=== PATIENT | female | born 1930 | race Caucasian/White ===

== ENCOUNTER 2019-03-29 13:10 | Inpatient (IN) | payer MEDICARE ==
[~2019-03-29] VITALS: Ht 165.1 cm; Wt 65.6 kg
[2019-03-29] MEDS ORDERED: ATIVAN0.5 MG PO (13:21)
[2019-03-29] MEDS ORDERED: CALCIUM 600 +1 EAC3 PO (13:21)
[2019-03-29] MEDS ORDERED: CLARITIN 10 MG10 MG (13:22)
[2019-03-29] MEDS ORDERED: VITAMIN D5000 UNIT PO (13:22)
[2019-03-29] MEDS ORDERED: COLACE100 MG PO (13:22)
[2019-03-29] MEDS ORDERED: NEURONTIN 300300 MG PO (13:22)
[2019-03-29] MEDS ORDERED: LASIX40 MG PO (13:24)
[2019-03-29] MEDS ORDERED: MELATONIN5 MG PO (13:24)
[2019-03-29] MEDS ORDERED: MIRALAX17 GM PO (13:25)
[2019-03-29] MEDS ORDERED: MIDODRINE HCL2.5 MG PO (13:25)
[2019-03-29] MEDS ORDERED: NEPHRO-VITE RX1 TAB PO (13:25)
[2019-03-29] MEDS ORDERED: PRAVACHOL20 MG PO (13:26)
[2019-03-29] MEDS ORDERED: HYDROCODON-ACE1 EA10 PO (13:26)
[2019-03-29] MEDS ORDERED: PATADAY2.5 ML EACH EYE (13:26)
--- NOTE | 2019-03-29 13:35 | NUR ---
PATIENT IN GOWN; ON LAND RECLAMATION SPECIALIST; CALL LIGHT WITHIN REACH; BEDSIDE TABLE WITHIN REACH
[2019-03-29 14:00] VITALS: BP 153/59
--- NOTE | 2019-03-29 14:00 | NUR ---
PATIENT SLEEPING AROUSES TO VERBAL STIMULI; RESPIRATIONS EVEN AND UNLABORED; NO NEEDS NOTED; UPDATED ON PLAN OF CARE AND DELAYS IN CARE; WILL CONTINUE TO MONITOR.
[2019-03-29 14:59] LABS: ALBUMIN 2.9 g/dL (3.4-5.0); ANION GAP 14.8 mmol/L (8-16); BILIRUBIN - TOTAL 0.33 mg/dL (0.2-1.3); CARBON DIOXIDE 23.2 mmol/L (21.0-32.0); CREATININE - SERUM 3.8 mg/dL (0.6-1.3); PROTEIN - SERUM 6.2 g/dL (6.4-8.2)
[2019-03-29 15:00] VITALS: BP 166/59
--- NOTE | 2019-03-29 15:00 | NUR ---
PATIENT SLEEPING; AWAKES TO VERBAL STIMULI; NO NEEDS NOTED; UPDATED ON PLAN OF CARE AND DELAYS IN CARE; WILL CONTINUE TO MONITOR.
[2019-03-29 15:01] LABS: BASOPHILS 0.5 % (0-2); EOSINOPHILS 2.2 % (0-7); HEMATOCRIT 36.8 % (36.0-48.0); IMMATURE GRANULOCYTES 0.3 % (0-5); LYMPHOCYTES 38.7 % (15-50); MCH 29.9 pg (26.0-34.0); MCHC 32.6 g/dL (31.0-37.0); MCV 91.8 fL (80.0-100.0); MEAN PLATELET VOLUME 8.8 fL (7.4-10.4); MONOCYTES 9.6 % (2-11); NEUTROPHILS 48.7 % (40-80); PLATELET COUNT 235 10x3/uL (130-400); RBC 4.01 10x6/uL (4.00-5.40); RDW 17.1 % (11.5-14.5); WBC 7.4 10x3/uL (4.8-10.8)
--- NOTE | 2019-03-29 15:31 | NUR ---
PORTABLE X-RAY AT BEDSIDE
[2019-03-29 17:09] VITALS: BP 177/63
--- NOTE | 2019-03-29 17:51 | NUR ---
PATIENT GIVEN DIET TRAY
--- NOTE | 2019-03-29 17:59 | NUR ---
REPORT RECIEVED FROM ALLIE BUENO IN ER. ROOM DIRTY AT THIS TIME. WILL CALL WHEN COMPLETE.
--- NOTE | 2019-03-29 18:03 | NUR ---
CONTACTED MEGAN CAMPOVERDE AND UPDATED ON PATIENT STATUS; THEY ARE GOING TO CONTACT FAMILY MEMBER
--- NOTE | 2019-03-29 18:32 | NUR ---
PT RECIEVED FROM ER VIA LIA. ALERT AND ORIENTED. IV NOTED TO RIGHT FOREARM. RESERVE LEFT ARM. REDNESS AND SWELLING NOTED TO UPPER LEFT ARM. HEMASPLIT NOTED TO RIGHT GROIN. DRESSING, CDI. NONBLANCHABLE REDNESS NOTED TO BUTTOCK. RR EVEN AND UNLABORED. DENIES NEEDS OR PAIN AT THIS TIME. WILL CONTINUE TO MONITOR.
--- NOTE | 2019-03-29 18:52 | MORECARE ---
CASE MANAGEMENT DISCHARGE SUMMARY PATIENT: BETY CASEY UNIT: [id number] ADM DATE: 03/29/19 AGE: 88 : [birth year] SEX: F ROOM/BED: D.2110 AUTHOR: ERIK MEDLEY PHYSICIAN: REFERRING PHYSICIAN: SUNSHINE HERNANDEZ MD DATE OF SERVICE: 03/29/19 Discharge Plan Patient Name: BETY CASEY Facility: [facility]:[place] : 1930 Planned Disposition: Anticipated Discharge Date: Discharge Date: Expected LOS: Initial Reviewer: [email or web address] Initial Review Date: 03/29/2019 Generated: 03/29/19 7:52 pm Patient Name: BETY CASEY Page 60082 at 1852 All edits/amendments must be made on the electronic document DICTATION DATE: 03/29/191851 ADOBE FLEX DEVELOPER: J LUIS 03/29/191851 RPT#: [id number] DC DATE: STATUS: ADM IN [facility] [address] [place] [address] END OF REPORT
--- NOTE | 2019-03-29 19:35 | NUR ---
PT LYING IN BED RESTING WITH EYES CLOSED. AWAKENS TO VERBAL STIMULI. ALERT AND ORIENTED. DENIES PAIN. REQUESTED AND GIVEN SANDWICH AND WATER, PT ATE ALL OF TRAY. IV RIGHT HAND SL, FLUSHES EASILY. LEFT UPPER ARM FISTULA WITH REDDENED AREA, SWELLING, AND BLEEDING. DRESSING CHANGED. HEME SPLIT TO RIGHT GROIN. TELE PLACED ON PT, HR 55 SR. DENIES OTHER NEEDS AT THIS TIME. BED ALARM ON, CL IN REACH. WILL CTM
[2019-03-29 20:00] VITALS: BP 166/58
[2019-03-29 20:47] VITALS: BMI 24.0
[2019-03-30] VITALS: BP 138/47
--- NOTE | 2019-03-30 00:45 | NUR ---
PT WAKING UP EVERY 30MIN, ANXIOUS AND FORGETFUL OF TIME. REQUESTED "IBUPROFEN OR SOMETHING" TO HELP HER, INFORMED PT HAD NOT RESTARTED HOME MEDICATIONS YET BUT ASKED IF TYLENOL WOULD HELP HER, PT STATES YES. GAVE TYLENOL. WILL CTM
[2019-03-30 05:07] LABS: BASOPHILS 0.6 % (0-2); EOSINOPHILS 2.4 % (0-7); HEMATOCRIT 35.1 % (36.0-48.0); HEMOGLOBIN 11.3 g/dL (12-16); IMMATURE GRANULOCYTES 0.3 % (0-5); LYMPHOCYTES 27.1 % (15-50); MCHC 32.2 g/dL (31.0-37.0); MCV 93.1 fL (80.0-100.0); MONOCYTES 10.7 % (2-11); NEUTROPHILS 58.9 % (40-80); PLATELET COUNT 243 10x3/uL (130-400); RBC 3.77 10x6/uL (4.00-5.40); RDW 17.6 % (11.5-14.5)
[2019-03-30 05:33] LABS: ANION GAP 15.5 mmol/L (8-16); CALCIUM 8.3 mg/dL (8.5-10.1); CARBON DIOXIDE 21.7 mmol/L (21.0-32.0); CREATININE - SERUM 4.3 mg/dL (0.6-1.3); MAGNESIUM - SERUM 1.8 mg/dL (1.8-2.4); PHOSPHOROUS 6.1 mg/dL (2.5-4.9); POTASSIUM - SERUM 5.2 mmol/L (3.5-5.1); VANCOMYCIN - RANDOM 12.9 ug/mL (10.0-20.0)
--- NOTE | 2019-03-30 07:00 | NUR ---
RECEIVED REPORT. ASSUMED CARE OF PATIENT. RESTING IN BED WITH EYES OPEN. REQUESTING THIS ELECTRON MICROPROBE OPERATOR STAY AT BEDSIDE. CALL LIGHT WITHIN REACH. RESP EVEN AND UNLABORED. CONFUSED. NO DISTRESS.
--- NOTE | 2019-03-30 08:00 | NUR ---
ASSISTED TO PULL PATIENT UP IN BED FOR AM MEAL.
[2019-03-30 08:50] VITALS: BP 142/43
[2019-03-30 08:58] VITALS: BMI 24.0
[2019-03-30 09:06] VITALS: Ht 165.1 cm; Wt 65.6 kg
--- NOTE | 2019-03-30 09:53 | NUR ---
NEW WOUND CARE ORDERS RECEIVED FROM
--- NOTE | 2019-03-30 10:26 | NUR ---
CALLED AND SPOKE TO NEVA AT [facility] TO VERIFY IF PATIENT GOT DIALYSIS OR NOT AND SHE STATED THAT SHE DID NOT GET DIALYSIS BECAUSE OF HER ARM EVEN THOUGH THEY ARE USING THE HEMESPLIT. THE NURSE DID NOT UNDERSTAND WHY SHE DID NOT RECEIVE DIALYSIS PRIOR TO BEING TRANSFERRED HERE. CALLED MARBELLA BACK AND INFORMED HER THAT PATIENT DID NOT GET DIALYSIS. MARBELLA SAYS PATIENT WILL NEED DIALYSIS BEFORE WE CAN SEND HER BACK.
--- NOTE | 2019-03-30 11:04 | NUR ---
22 GAUGE IV PLACED X 1 STICK TO RIGHT FOREARM. GOOD BLOOD RETURN, EASY FLUSH. TAPED, DATED AND SECURED. TOELRATED IV PLACEMENT WELL. 20 GAUGE IV REMOVED FROM RIGHT WRIST. CATHETER TIP INTACT. NO BLEEDING FROM SITE. IV UNABLE TO FLUSH. TOLERATED IV REMOVAL WELL. NO DISTRESS. 2X2 GAUZE APPLIED AND SECURED WITH TAPE.
--- NOTE | 2019-03-30 12:28 | NUR ---
PATIENT HOLLORING OUT, CONFUSED AND TEARY EYED. PATIENT WANTING DIALYSIS SO SHE CAN GO HOME. CALL LIGHT WITHIN REACH. SIDE RAILS UP FOR SAFETY. NO DISTRESS.
[2019-03-30 12:30] VITALS: BP 147/51
--- NOTE | 2019-03-30 14:58 | NUR ---
PATIENT LEFT UNIT VIA BED FOR DIALYSIS AT 1445. NO DISTRESS UPON LEAVING UNIT. RESP EVEN AND UNLABORED.
--- NOTE | 2019-03-30 16:41 | NUR ---
PATIENT RETURNED FROM DIALYSIS VIA BED. NO DISTRESS. PATIENT TOLERTATED DIALYSIS WELL.
--- NOTE | 2019-03-30 16:43 | NUR ---
FERCHO GAVE REPORT FROM DIALYSIS, 2 LITERS REMOVED.
--- NOTE | 2019-03-30 17:08 | NUR ---
MEDICATED FOR PAIN AT THIS TIME.
--- NOTE | 2019-03-30 17:12 | MORECARE ---
CASE MANAGEMENT DISCHARGE SUMMARY PATIENT: BETY CASEY UNIT: [id number] ADM DATE: 03/29/19 AGE: 89 : [birth year] SEX: F ROOM/BED: D.2110 AUTHOR: ERIK MEDLEY PHYSICIAN: REFERRING PHYSICIAN: SUNSHINE HERNANDEZ MD DATE OF SERVICE: 03/30/19 Discharge Plan Patient Name: BETY CASEY Facility: [facility]:[place] : 1930 Planned Disposition: Anticipated Discharge Date: Discharge Date: Expected LOS: Initial Reviewer: [email or web address] Initial Review Date: 03/29/2019 Generated: 03/30/19 6:11 pm Comments DCP- Discharge Planning Updated by [email or web address]: Yessy Kirby on 03/30/19 4:[address] LATE ENTRY 1430 CM NOTIFIED THAT THE PATIENT IS FOR DISCHARGE TO [facility] IN [place], [place]. SHE WILL BE DIALYZED PRIOR TO DISCHARGE. SHE HAS NOT BEEN CALLED FOR HD OF THIS TIME. TC TO [facility]. CM SPOKE W/ GISELA. THEY CAN ACCEPT PATIENT BACK ON THE WEEKEND HOWEVER THE PATIENT WILL LIKELY BE DIALYZED LATE PM. IT IS A [address] TO THE FACILITY. TRANSFERING AN [age] YEAR OLD PATIENT BACK W/ ESTIMATED ARRIVAL TIME BETWEEN 12 MIDNIGHT OR 0100 POST TREATMENT IS OF CONCERN. GISELA STATED SHE WOULD CALL HER DON REGARDING TRANSPORTATION AND RETURN BACK. CM FAXED DISCHARGE INFORMATION TO [phone]. CONTACT PHONE NUMBER IS [phone]. 1645- RECEIVED A TELEPHONE CALL FROM [facility]. ARRANGEMENTS FOR TRANSPORT HAVE BEEN MADE FOR 1030 03/31/19. KAYLA,MATHEMATICIAN, NOTIFIED. PRIMARY NURSE, NIKOLAS, NOTIFIED. NIKOLAS SPOKE W/ NEVA AT THE FACILITY THIS AM. PCP- [facility]- PHONE [phone] FAX [phone] DP export: 03/29/19 5:52 pm Patient Name: BETY CASEY Page 50004 at 1712 All edits/amendments must be made on the electronic document DICTATION DATE: 03/30/191710 MILL DRESSER: J LUIS 03/30/191710 RPT#: [id number] DC DATE: STATUS: ADM IN [facility] [address] [place] [address] END OF REPORT
--- NOTE | 2019-03-30 17:12 | NUR ---
[facility]ISON TO PICK PATIENT UP AT 1030 TOMORROW AM.
--- NOTE | 2019-03-30 18:08 | NUR ---
PATIENT CONSTANTLY PUSHING CALL LIGHT. INCONTINENT CARE PROVIDED AND REPOSITIONED FOR COMFORT. PATIENT IS CONFUSED. CONTINUES TO HOLLOR OUT. WANTS SOMEONE TO STAY AT HER BEDSIDE. THIS STUDY SPECIALIST HAS EXPLAINED MANY, MANY TIMES I AM UNALBE TO STAY AT BEDSIDE. PATIENT CONTINUES TO CALL OUT.
--- NOTE | 2019-03-30 19:03 | NUR ---
RECIEVED LAYING IN BED ON HER RIGHT SIDE YELLING OUT "HELP ME" SEVERAL TIME. WHEN ASKED WHAT SHE WANTED STATED "TURN ME ON MY SIDE". EXPLAINED SHE WAS ALREADY ON THAT SIDE. ALERT AND ORIENTED TO PERSON ONLY. IV TO RIGHT FA SL.. DSG TO LEFT UPPER ARM AT FISTULA SITE. APPEARS TO BE FALLING OFF. REINFORCED WITH TAPE. HEMO SPLIT TO RIGHT THIGH. DSG CDI.
[2019-03-30 20:00] VITALS: BP 107/69
--- NOTE | 2019-03-30 21:03 | NUR ---
BEHAVIORS THIS SHIFT. YELLING OUT CONSTANTLY AND PUSHES CALL LIGHT CONSTANTLY. ANSWERED CALL LIGHT SEVERAL TIMES AND SOON THIS NURSE LEFT THE ROOM PT PUSH CALL LIGHT. SHE IS CONFUSED AND ANXIOUS. CALLED DAVID GARCIA WITH NEW ORDERS TO RESTART ATIVAN AND MELATONIN.
[2019-03-31] VITALS: BP 138/54
[2019-03-31 04:00] VITALS: BP 159/55
--- NOTE | 2019-03-31 04:37 | NUR ---
DSG TO LEFT UPPER ARM CHANGED THIS SHIFT.
--- NOTE | 2019-03-31 07:00 | NUR ---
RECEIVED REPORT. ASSUMED CARE OF PATIENT. CALL LIGHT WITHIN REACH. RESTING WITH EYES CLOSED. NO DISTRESS. SR UP FOR SAFETY. NO DISTRESS.
--- NOTE | 2019-03-31 09:18 | NUR ---
ATTEMPTED TO CALL [facility] AND NO ANSWER AT [phone]. AUTOMATED ANSWERING SYSTEM CONTINUES TO PICK AFTER AFTER NUMEROUS RINGS AT THE NURSES STATION.
--- NOTE | 2019-03-31 10:06 | NUR ---
CALLED ME[facility] AND AFTER BEING HUNG UP ON THREE TIMES, FINALLY GOT AN ANSWER AND WAS PLACED ON HOLD. SPOKE WITH TODD OSMAN AND GAVE REPORT. JACQUI STATES FACILITY SHOULD BE THERE BETWEEN 1030 AND 11 TO PICK HER UP.
--- NOTE | 2019-03-31 10:20 | NUR ---
1015 22 GAUGE IV REMOVED FROM RIGHT FOREARM. CATHETER TIP INTACT. NO BLEEDING FROM SITE. 2X2 GAUZE APPLIED AND SECURED WITH BANDAID. TOLERATED IV REMOVAL WELL, PATIENT DISCHARGING BACK TO [facility]. 1020 DISCHARGE INSTRUCTIONS READ OVER AND PATIENT SIGNED. DISCHARGE INSTRUCTIONS PROVIDED TO JACQUI OVER THE PHONE WELL.
--- NOTE | 2019-03-31 11:32 | NUR ---
PATIENT LEFT UNIT VIA WHEELCHAIR AT THIS TIME WITH ALL PERSONAL BELONGINGS. PAT[facility] WITH 2 ATTENDANTS. PATIENT EXCITED TO LEAVE BUT STATED SHE WOULD MISS ALL THE STAFF. NO DISTRESS UPON LEAVING THE UNIT.
--- NOTE | 2019-03-31 18:35 | MORECARE ---
CASE MANAGEMENT DISCHARGE SUMMARY PATIENT: BETY CASEY UNIT: [id number] ADM DATE: 03/29/19 AGE: 89 : [birth year] SEX: F ROOM/BED: D.5857 AUTHOR: JASMYNE,DOC PHYSICIAN: REFERRING PHYSICIAN: SUNSHINE HERNANDEZ MD DATE OF SERVICE: 03/31/19 Discharge Plan Patient Name: BETY CASEY Facility: [facility]:[place] : 1930 Planned Disposition: Alf Facility Anticipated Discharge Date: 03/31/19 Discharge Date: 03/31/2019 Expected LOS: 2 Initial Reviewer: [id number] Initial Review Date: 03/29/2019 Generated: 03/31/19 7:35 pm Comments DCP- Discharge Planning Updated by [email or web address]: Yessy Kibry on 03/31/19 5:[address] LATE ENTRY PATIENT DISCHARGED BACK TO [facility]. SPOKE WITH TODD HIGGINS. SHE STATED " PATIENT WAS PROBABLY ADMITTED TO A SKILLED BED" DCP- Discharge Planning Updated by [id number]: Yessy Kirby on 03/30/19 4:[address] LATE ENTRY 1430 LULA NOTIFIED THAT THE PATIENT IS FOR DISCHARGE TO [facility] IN [place], [place]. SHE WILL BE DIALYZED PRIOR TO DISCHARGE. SHE HAS NOT BEEN CALLED FOR HD OF THIS TIME. TC TO [facility]. CM SPOKE W/ GISELA. THEY CAN ACCEPT PATIENT BACK ON THE WEEKEND HOWEVER THE PATIENT WILL LIKELY BE DIALYZED LATE PM. IT IS A [address] TO THE FACILITY. TRANSFERING [age] YEAR OLD PATIENT BACK W/ ESTIMATED ARRIVAL TIME BETWEEN 12 MIDNIGHT OR 0100 POST TREATMENT IS OF CONCERN. GISELA STATED SHE WOULD CALL HER DON REGARDING TRANSPORTATION AND RETURN BACK. CM FAXED DISCHARGE INFORMATION TO [phone]. CONTACT PHONE NUMBER IS [phone]. [phone]- RECEIVED A TELEPHONE CALL FROM [facility]. ARRANGEMENTS FOR TRANSPORT HAVE BEEN MADE FOR 1030 03/31/19. KAYLA,LEAD SECURITY OFFICER, NOTIFIED. PRIMARY NURSE, NIKOLAS, NOTIFIED. NIKOLAS SPOKE W/ NEVA AT THE FACILITY THIS AM. PCP- [facility]- [facility]- PHONE [phone] FAX [phone] DP export: 03/30/19 4:12 p Patient Name: BETY CASEY Page 10663 at 1835 All edits/amendments must be made on the electronic document DICTATION DATE: 03/31/191834 AUTOMATIC THREAD WINDER: J LUIS 03/31/191834 RPT#: [id number] DC DATE:03/31/19 STATUS: DIS IN [facility] [address] [place] [address] END OF REPORT
--- NOTE | 2019-04-01 09:08 | MORECARE ---
CASE MANAGEMENT DISCHARGE SUMMARY PATIENT: BETY CASEY UNIT: [id number] ADM DATE: 03/29/19 AGE: 89 : [birth year] SEX: F ROOM/BED: D.8321 AUTHOR: JASMYNE,DOC PHYSICIAN: REFERRING PHYSICIAN: SUNSHINE HERNANDEZ MD DATE OF SERVICE: 04/01/19 Discharge Plan Patient Name: BETY CASEY Facility: [facility]:[place] : 1930 Planned Disposition: Correction Facility Anticipated Discharge Date: 03/31/19 Discharge Date: 03/31/2019 Expected LOS: 2 Initial Reviewer: [email or web address] Initial Review Date: 03/29/2019 Generated: 04/01/19 10:07 am Comments DCP- Discharge Planning Updated by [email or web address]: Yessy Kirby on 03/31/19 5:[address] LATE ENTRY PATIENT DISCHARGED BACK TO [facility]. SPOKE WITH TODD HIGGINS. SHE STATED " PATIENT WAS PROBABLY ADMITTED TO A SKILLED BED" DCP- Discharge Planning Updated by [email or web address]: Yessy Kirby on 03/30/19 4:[address] LATE ENTRY 1430 LULA NOTIFIED THAT THE PATIENT IS FOR DISCHARGE TO [facility] IN [place], [place]. SHE WILL BE DIALYZED PRIOR TO DISCHARGE. SHE HAS NOT BEEN CALLED FOR HD OF THIS TIME. TC TO [facility]. CM SPOKE W/ GISELA. THEY CAN ACCEPT PATIENT BACK ON THE WEEKEND HOWEVER THE PATIENT WILL LIKELY BE DIALYZED LATE PM. IT IS A [address] TO THE FACILITY. TRANSFERING AN [age] YEAR OLD PATIENT BACK W/ ESTIMATED ARRIVAL TIME BETWEEN 12 MIDNIGHT OR 0100 POST TREATMENT IS OF CONCERN. GISELA STATED SHE WOULD CALL HER DON REGARDING TRANSPORTATION AND RETURN BACK. CM FAXED DISCHARGE INFORMATION TO [phone]. CONTACT PHONE NUMBER IS [phone]. [phone]- RECEIVED A TELEPHONE CALL FROM [facility]. ARRANGEMENTS FOR TRANSPORT HAVE BEEN MADE FOR 1030 03/31/19. KAYLA,PACKING MACHINE OPERATOR, NOTIFIED. PRIMARY NURSE, NIKOLAS, NOTIFIED. NIKOLAS SPOKE W/ NEVA AT THE FACILITY THIS AM. PCP- [facility]- [facility]- PHONE [phone] FAX [phone] DP export: 03/31/19 5:35 p Patient Name: BETY CASEY Page 71402 at 0908 All edits/amendments must be made on the electronic document DICTATION DATE: 04/01/19906 SENIOR LOGISTICS MANAGER: J LUIS 04/01/19906 RPT#: [id number] DC DATE:03/31/19 STATUS: DIS IN [facility] [address] [place] [address] END OF REPORT
== END 2019-03-31 11:32 | DRG 604 ==
LOC: EDBD 13:10 → D.ER 13:10 → D.M2 17:50
PROVIDERS: Family Medicine; ADMIT Internal Medicine; ATTEND Internal Medicine
PROC: 5A1D70Z Performance of Urinary Filtration, Intermittent, Less than 6 Hours Per Day (ICD-10-PCS; principal; 2019-03-30)
DX: S41.102A Unspecified open wound of left upper arm, initial encounter (principal); N18.6 End stage renal disease; X58.XXXA Exposure to other specified factors, initial encounter; E11.22 Type 2 diabetes mellitus with diabetic chronic kidney disease; Z99.2 Dependence on renal dialysis; E78.5 Hyperlipidemia, unspecified; E87.5 Hyperkalemia; G47.00 Insomnia, unspecified; I50.9 Heart failure, unspecified